=== PATIENT | male | born 1955 | race Caucasian/White ===

== ENCOUNTER 2019-10-14 11:37 | Inpatient (IN) | payer OTHER ==
[~2019-10-14] VITALS: Ht 165.1 cm; Wt 88.5 kg
[2019-10-14 12:00] VITALS: BP_SYST 154
--- NOTE | 2019-10-14 12:35 | NUR ---
Note anyi in [facility] - 10/14/19 at 1247 by SALINA Patient to bed 6 to [facility] for evaluation. Side rails up.
--- NOTE | 2019-10-14 12:40 | NUR ---
Patient presents to ER C/O right leg wound . Patient A&Ox4, ambulatory to ER, skin pink and hot, right lateral leg noted, pain 4/10 right lateral foot, denies N/V/D. Patient states wound and pain x1 week, denies trauma, denies other health hx.
--- NOTE | 2019-10-14 12:45 | NUR ---
ER at bedside examining patient.
[2019-10-14] MEDS ORDERED: VANCOMYCIN HCL 1,000 MG in NS 250 ML IV ONE (13:00)
[2019-10-14] MEDS ORDERED: VANCOMYCIN HCL 1000 MG/VIAL IV ONE (13:42)
[2019-10-14] MEDS ORDERED: ACETAMINOPHEN 325 MG TABLET PO PRN (15:45)
--- NOTE | 2019-10-14 15:45 | NUR ---
non adherent dressing applied to wound and wrapped with kerlex
[2019-10-14 15:47] LABS: BASOPHILS # (AUTO) 0.1 K/uL (0.0-0.2); BASOPHILS % (AUTO) 0.9 % (0.0-2.0); EOSINOPHILS # (AUTO) 0.2 K/uL (0.0-0.4); EOSINOPHILS % (AUTO) 2.2 % (0.0-4.0); HEMATOCRIT 41.7 % (36-54); LYMPHOCYTES % (AUTO) 26.4 % (20.5-51.5); MEAN CORPUSCULAR HEMOGLOBIN 30 pg (27-31); MEAN CORPUSCULAR HGB CONC 34 % (32-36); MEAN CORPUSCULAR VOLUME 88 fL (79.0-98.0); MONOCYTES # (AUTO) 0.6 K/uL (0.0-1.0); MONOCYTES % (AUTO) 8.2 % (1.7-9.3); NEUTROPHILS # (AUTO) 4.6 K/uL (1.8-7.7); NEUTROPHILS % (AUTO) 62.3 % (40.0-70.0); PLATELET COUNT (AUTO) 282 K/uL (130-430); RED BLOOD CELL COUNT(AUTO) 4.74 MIL/uL (4.2-6.2); RED CELL DISTRIBUTION WIDTH 13.5 % (9.0-15.0); WHITE BLOOD COUNT (AUTO) 7.5 K/uL (4.8-10.8)
--- NOTE | 2019-10-14 16:00 | NUR ---
Medication reconciliation completed with information provided by PATIENT. NO MEDICATIONS.
[2019-10-14 16:09] LABS: CREATININE 0.75 mg/dL (0.55-1.30); POTASSIUM 4.1 mmol/L (3.5-5.1)
[2019-10-14 16:15] LABS: ALBUMIN 3.7 g/dL (3.4-4.8); TOTAL BILIRUBIN 0.3 mg/dL (0.0-1.0)
[2019-10-14 16:16] LABS: C-REACTIVE PROTEIN QUANT 3.1 mg/dL (0-0.5)
--- NOTE | 2019-10-14 16:40 | NUR ---
IV abx complete, patient sitting up in gurney.
--- NOTE | 2019-10-14 17:33 | NUR ---
Patient will be admitted to care of Dr. Lombardo. Admitted to MEDSURG unit. Will go to room 118A. Belongings list completed. Complete and up to date summary report printed. SBAR report to be given at bedside with opportunity for questions.
--- NOTE | 2019-10-14 18:05 | NUR ---
ADMISSION NOTE Received patient from ER via ivet, received report from Marika ROSA RN. Patient admitted with diagnosis of Cellulitis. Patient oriented to hospital routine, call light, toileting and safety-patient verbalized understanding.
[2019-10-14 18:18] VITALS: BP_SYST 151
[2019-10-14 18:34] VITALS: BP_SYST 151
--- NOTE | 2019-10-14 19:13 | NUR ---
ENDORSED: ENDORSED PLAN OF CARE TO NOC REEL CUTTER, ANETA. ALL QUESTIONS ANSWERED.
--- NOTE | 2019-10-14 20:00 | NUR ---
Received report from day shift nurse. Introduced self to patient. Patient alert and oriented. Patient resting comfortably in bed. Denies pain or discomfort. No questions or concerns at this time. Will continue to monitor throughout shift.
[2019-10-14] MEDS: VANCOMYCIN HCL 1.25 GM/NS 250 ML IV SCH (21:41)
[2019-10-15 00:10] VITALS: BP_SYST 144
--- NOTE | 2019-10-15 07:25 | NUR ---
Received report from night team registered nurse. Patient is awake, alert, in bed. Needs met at this time. Giancarlo Alanis RN
[2019-10-15 07:33] VITALS: BP_SYST 128
[2019-10-15 08:59] VITALS: BP_SYST 151
[2019-10-15] MEDS ORDERED: cefTRIAXone 1 GM in D5W 50 ML IV SCH (09:00)
--- NOTE | 2019-10-15 09:45 | NUR ---
Nutrition Update Reggie Scale 18 noted. Pt admitted for cellulitis. Diet: regular BMI: 32.4 kg/m2 RD to follow per nutrition care standards.
[2019-10-15] MEDS: VANCOMYCIN HCL 1.25 GM/NS 250 ML IV SCH ×2 (09:52→22:05)
--- NOTE | 2019-10-15 11:28 | NUR ---
CONSULTATION PAGED/CALLED Reason for Consultation: CELLULITIS Person Who was Notified: SPOKE WITH NATALIIA FROM OFFICE . Consulting Physician: Political Reporter Specialty: ID Ordering Physician:
[2019-10-15 12:42] VITALS: BP_SYST 139
[2019-10-15 16:40] VITALS: BP_SYST 130
[2019-10-15 19:00] VITALS: BP_SYST 138
--- NOTE | 2019-10-15 19:48 | NUR ---
Right lower extremity wound culture to laboratory for culture and sensitivity. Redressed right lower extremity. Night team RN handoff. Giancarlo Alanis RN
[2019-10-15] MEDS ORDERED: VANCOMYCIN HCL 1,250 MG in NS 250 ML IV SCH (22:00)
[2019-10-15] MEDS: ceFAZolin SODIUM 1 GM in D5W 50 ML IV SCH (22:04)
[2019-10-16] MEDS: ceFAZolin SODIUM 1 GM in D5W 50 ML IV SCH ×3 (06:22→21:43)
[2019-10-16 08:15] VITALS: BP_SYST 148
--- NOTE | 2019-10-16 08:15 | NUR ---
INITIAL ROUNDS Received pt AAOx4, no s/s resp distress, no c/o pain of or discomfort. Noted dressings to RLE clean, dry and intact. Plan of care for the day reviewed with pt-pt verbalized his understanding. Fresh ice water given. Pain management, disease process, skin and safety precautions discussed-teach back done. Call light within reach.
[2019-10-16] MEDS: VANCOMYCIN HCL 1.25 GM/NS 250 ML IV SCH (10:23)
[2019-10-16 11:12] VITALS: BP_SYST 126
[2019-10-16 16:35] VITALS: BP_SYST 142
[2019-10-16] MEDS ORDERED: ZOLPIDEM TARTRATE 5 MG TABLET PO PRN (17:30)
[2019-10-16] MEDS ORDERED: ACETAMINOPHEN 325 MG TABLET PO PRN (17:30)
[2019-10-16] MEDS ORDERED: traMADol HCL HCL 50 MG TABLET (ULTRAM) PO PRN (17:45)
[2019-10-16] MEDS: LACTOBACILLUS RHAMNOSUS GG 1 CAP CAPSULE PO SCH ×2 (17:45→21:43)
[2019-10-16] MEDS: ACYCLOVIR 400 MG TABLET PO SCH ×2 (17:45→21:43)
--- NOTE | 2019-10-16 18:00 | NUR ---
WOUND CARE/MD Old dressings removed for Dr. Mckeon to view wounds. *Wound on lateral right knee cleansed with normal saline, adaptic dressing placed over open area, covered with 4x4 dressings and secured in placed with Kerlex dressing. Wound bed 100% pink tissue, periwound pink, no odor no drainage. Measures 0.3 cm x 0.6 cm. Wound on lateral right lower extremity cleansed with normal saline, adaptic dressing placed over open area, covered with 4x4 dressings and secured in placed with Kerlex dressing. Wound bed is 90% white tissue, 10% red tissue, no odor, moderate amount of drainage. Measures 0.2 cm x 0.3 cm, periwound pink and swollen. Wound distal to #2 above on lateral right lower extremity cleansed with normal saline, adaptic dressing placed over open area, covered with 4x4 dressings and secured in placed with Kerlex dressing. Wound bed is 80% white tissue, 20% red tissue, no odor, moderate amount of drainage, periwound pink and swollen. Measures 0.5 cm x 0.7 cm. Pt tolerated well.
--- NOTE | 2019-10-16 19:00 | NUR ---
CLOSING NOTE Pt resting quietly in bed with no s/s resp distress, no c/o pain or discomfort. Needs met, call light within reach.
[2019-10-16 20:00] VITALS: BP_SYST 126
[2019-10-16] MEDS: VANCOMYCIN HCL 1,500 MG in NS 250 ML IV SCH (22:00)
[2019-10-17] VITALS: BP_SYST 118
[2019-10-17 04:00] VITALS: BP_SYST 118
[2019-10-17] MEDS: ceFAZolin SODIUM 1 GM in D5W 50 ML IV SCH ×3 (06:37→21:34)
[2019-10-17] MEDS: ACYCLOVIR 400 MG TABLET PO SCH ×2 (07:10→15:06)
[2019-10-17 07:36] LABS: BASOPHILS # (AUTO) 0.1 K/uL (0.0-0.2); BASOPHILS % (AUTO) 1.1 % (0.0-2.0); EOSINOPHILS # (AUTO) 0.4 K/uL (0.0-0.4); EOSINOPHILS % (AUTO) 8.6 % (0.0-4.0); HEMATOCRIT 40.5 % (36-54); HEMOGLOBIN 13.6 g/dL (14.0-18.0); LYMPHOCYTES # (AUTO) 1.9 K/uL (1.0-5.5); MEAN CORPUSCULAR HEMOGLOBIN 30 pg (27-31); MEAN CORPUSCULAR HGB CONC 34 % (32-36); MEAN CORPUSCULAR VOLUME 88 fL (79.0-98.0); MONOCYTES # (AUTO) 0.5 K/uL (0.0-1.0); MONOCYTES % (AUTO) 11.1 % (1.7-9.3); NEUTROPHILS # (AUTO) 1.9 K/uL (1.8-7.7); NEUTROPHILS % (AUTO) 39.2 % (40.0-70.0); PLATELET COUNT (AUTO) 302 K/uL (130-430); RED BLOOD CELL COUNT(AUTO) 4.61 MIL/uL (4.2-6.2); RED CELL DISTRIBUTION WIDTH 13.5 % (9.0-15.0); WHITE BLOOD COUNT (AUTO) 4.8 K/uL (4.8-10.8)
[2019-10-17 07:54] LABS: CALCIUM 8.4 mg/dL (8.4-11.0); CREATININE 0.73 mg/dL (0.55-1.30); POTASSIUM 3.8 mmol/L (3.5-5.1); TOTAL BILIRUBIN 0.5 mg/dL (0.0-1.0)
[2019-10-17 08:00] VITALS: BP_SYST 133
--- NOTE | 2019-10-17 08:02 | NUR ---
INITIAL ROUNDS Received pt AAOx4, no s/s resp distress, no c/o pain of or discomfort. Noted dressings to RLE clean, dry and intact. Plan of care for the day reviewed with pt-pt verbalized his understanding. Pt stated he hopes to be discharged home today. Pain management, disease process, skin and safety precautions discussed-teach back done. Call light within reach.
[2019-10-17] MEDS: LACTOBACILLUS RHAMNOSUS GG 1 CAP CAPSULE PO SCH ×2 (09:32→21:34)
[2019-10-17 12:18] VITALS: BP_SYST 145
--- NOTE | 2019-10-17 12:48 | NUR ---
MD/SHOWER Pt seen by Dr. Charles-pt now in the shower per MD request to clean his RLE wound. Then will Place a warm compress to wound as instructed by Dr. Charles.
[2019-10-17] MEDS: VANCOMYCIN HCL 1,500 MG in NS 250 ML IV SCH ×2 (13:28→22:45)
--- NOTE | 2019-10-17 13:35 | NUR ---
WARM COMPRESS Warm compress placed over pt's lateral lower extremity per Dr. Charles request. RLE elevated. Pt tolerating well. Pt's at bedside, call light within reach.
[2019-10-17] MEDS ORDERED: INSULIN REGULAR, HUMAN 100 UNITS/ML, 10 ML VIAL (humuLIN R) SUBCUT PRN (15:45)
[2019-10-17] MEDS ORDERED: DEXTROSE 50% JECT 50 ML DISP.SYRIN IVP PRN (15:45)
[2019-10-17 15:46] VITALS: BP_SYST 148
--- NOTE | 2019-10-17 19:10 | NUR ---
CLOSING NOTE Pt resting quietly in bed with no s/s resp distress, no c/o pain or discomfort. Fresh warm compress placed to pt's RLE wound. Endorsed to cnc machinist 2nd shift nurse regarding Dr. Charles's & Dr. Mckeon"s recommendations for wound dressing. Needs met, call light within reach.
--- NOTE | 2019-10-17 19:20 | NUR ---
OPENING NOTES RECEIVED PATIENT IN BED AAO X4. BREATHING UNLABORED ON ROOM AIR. NO C/O OF PAIN AT THIS TIME. BED IN LOWEST LOCKED POSITION. CALL LIGHT WITH IN REACH.
[2019-10-17 21:29] VITALS: BP_SYST 143
--- NOTE | 2019-10-17 21:34 | NUR ---
MED PASS PATIENT DUE MEDICATIONS GIVEN. VITAL SIGNS STABLE.
[2019-10-17] MEDS: BACITRACIN/POLYMYXIN B SULFATE 30 GM TOPICAL OINT. TP SCH (21:36)
--- NOTE | 2019-10-17 22:00 | NUR ---
WOUND CARE WOUND CARE DONE TO PATIENT RT LOWER LEG WOUNDS ORDERED. PATIENT TOLERATED TREATMENT.
--- NOTE | 2019-10-17 22:45 | NUR ---
ATB PATIENT DUE ANTIBIOTIC INFUSING. IV LINE INTACT AND PATENT.
--- NOTE | 2019-10-18 00:30 | NUR ---
ROUNDS PATIENT RESTING IN BED EYES CLOSED. BREATHING UNLABORED. CALL LIGHT WITH IN REACH.
--- NOTE | 2019-10-18 02:41 | NUR ---
ROUNDS PATIENT IN BED RESTING. NO DISTRESS NOTED.
--- NOTE | 2019-10-18 04:44 | NUR ---
ROUNDS PATIENT RESTING IN BED. NO DISTRESS NOTED.
[2019-10-18] MEDS: ceFAZolin SODIUM 1 GM in D5W 50 ML IV SCH ×2 (06:32→13:13)
--- NOTE | 2019-10-18 06:53 | NUR ---
CLOSING NOTES AM FINGER STICK SUGAR 107. IV ATB INFUSING WITH IV LINE INTACT AND PATENT. PATIENT NEEDS ATTENDED.
[2019-10-18 07:52] VITALS: BP_SYST 126
--- NOTE | 2019-10-18 08:00 | NUR ---
Ambulate with steady gait, right leg dressing intact no bleeding, warm to touch, trace of edema , kept elevated to pillow , denies any pain , safety /fall precaution instructed, discussed IV antibiotic therapy and wound care verbalized understanding.
[2019-10-18] MEDS: LACTOBACILLUS RHAMNOSUS GG 1 CAP CAPSULE PO SCH (08:02)
[2019-10-18] MEDS: VANCOMYCIN HCL 1,500 MG in NS 250 ML IV SCH (09:31)
[2019-10-18] MEDS: BACITRACIN/POLYMYXIN B SULFATE 30 GM TOPICAL OINT. TP SCH (09:32)
[2019-10-18 11:17] VITALS: BP_SYST 151
--- NOTE | 2019-10-18 11:30 | NUR ---
Wound care completed, involved patient and on how to do the dressing , verbalized understanding ,warm compress as to wound as instructed by Dr. Caceres., supplies for few days is given.
[2019-10-18] MEDS ORDERED: DOXY100T2 PO (11:48)
[2019-10-18 12:44] VITALS: BP_SYST 126
--- NOTE | 2019-10-18 14:00 | NUR ---
D/C Patient Patient given medication reconciliation form and D/C instructions. Exit Care WOUND CARE, CELLULITIS,PO ANTIBIOTIC provided. Patient verbalized understanding. MD discussed with patient the results and treatment provided. Ambulatory with steady gait for discharge to home. Patient in stable condition, ID band removed. IV catheter removed, intact and dressing applied, no active bleeding. Rx of oral antibiotic verified through pharmacy of choice, Patient educated on pain management, elevate lower extrimities. All belongings sent with patient.
--- NOTE | 2019-10-21 12:05 | NUR ---
Discharge Follow Up Phone Call Phoned patient, , and left a voicemail message with reminder to make follow up appointment, offer of assistance and Social Service contact information.
== END 2019-10-18 14:10 | disposition home or self-care (01) | DRG 603 ==
LOC: SED 11:37 → SMU 16:50
PROVIDERS: ADMIT Internal Medicine Hospice and Palliative Medicine; ATTEND Internal Medicine Hospice and Palliative Medicine
DX: L03.115 Cellulitis of right lower limb (principal); L97.919 Non-pressure chronic ulcer of unspecified part of right lower leg with unspecified severity; L02.435 Carbuncle of right lower limb; L03.116 Cellulitis of left lower limb; L02.415 Cutaneous abscess of right lower limb; I10 Essential (primary) hypertension; E78.5 Hyperlipidemia, unspecified; J45.909 Unspecified asthma, uncomplicated; L40.9 Psoriasis, unspecified; Z79.899 Other long term (current) drug therapy; L01.00 Impetigo, unspecified
CPT/HCPCS: 36415; 73560-TC; 80053; 80061; 80202-TC; 82962; 83036; 85025; 85651-TC; 86140; 87040-TC; 87070-TC; 87186-TC; 96365; 96366; 99285; J0690; J1815; J3370; J7050; J7060